=== PATIENT | male | born 1985 | race Caucasian/White ===

== ENCOUNTER 2016-11-14 02:28 | Emergency (ER) | payer SELFPAY ==
--- NOTE | ~2016-11-14 | ER ---
PATIENT'S NAME: MARSHA FUNG [facility] AGE: 30 Y [address] ROOM: [place] [address] LOCATION: [facility] ADMIT DATE: 11/14/2016 ER/Outpatient Report DISCHARGE DATE: 11/14/2016 FAMILY PHYSICIAN: Jin Douglas MD ATTENDING PHYSICIAN: Selena Lema HISTORY OF PRESENT ILLNESS: This is a 30-year-old male who presents today with a chief complaint of severe lower abdominal pain woke him up from sleep with sudden onset. He does report some nausea from the pain, but no vomiting, it started 1-1/2 hours ago. Denies any urinary frequency or burning with urination or hematuria. No fever or chills. No constipation or diarrhea. He says it is severe cramping in his lower abdomen and it is in his back as well. It does not radiate anywhere else. It does not radiate down his legs. No other complaints at this time. PAST MEDICAL HISTORY: None. PAST SURGICAL HISTORY: None. SOCIAL HISTORY: He smokes 1-1/2 pack per day and has done so for years. Occasional alcohol. Denies drug use. Sexually active with one partner. Denies any penile discharge. No history of STDs. MEDICATIONS: None. ALLERGIES: NONE. REVIEW OF SYSTEMS: Reviewed by me and negative with the exception of those discussed in HPI. PHYSICAL EXAMINATION: VITAL SIGNS: The patient is 6 feet tall, 108.1 kilos, blood pressure 191/101, heart rate 72, respiratory rate 19, temp is 94.9, and satting 96% on room air. GENERAL: The patient looks very uncomfortable, unable to sit still in stretcher, has his knees up to his chest or the kidney, not actively vomiting. He does not look toxic. HEART: Regular rate and rhythm. LUNGS: Lung sounds are clear. ABDOMEN: He has some tenderness in the suprapubic area, in the right lower quadrant, and the left lower quadrant. No CVA tenderness bilaterally. No PATIENT'S NAME: MARSHA FUNG [facility] AGE: 30 Y [address] ROOM: [place] [address] LOCATION: [facility] ADMIT DATE: 11/14/2016 ER/Outpatient Report DISCHARGE DATE: 11/14/2016 FAMILY PHYSICIAN: Jin Douglas MD ATTENDING PHYSICIAN: Selena Lema right upper quadrant tenderness. Negative Jackson's. No epigastric tenderness. No left upper quadrant tenderness. SKIN: Warm, dry, and intact. EMERGENCY ROOM COURSE: An IV was established and the patient was given Toradol with immediate improvement of the pain and also gave him some morphine as well. We checked a CBC, CMP, a procal, a lactic, and a urine. The CBC shows a white count of 17.2, H and H of 17.5/49.7, and platelets are 233. He has no bandemia or left shift. CMP shows sodium 140, potassium 3.7, chloride 108, CO2 22, anion gap 13.7, glucose 113, calcium 9, BUN 17, creatinine 1.2, total bili is 0.5, alk phos is 93, AST 14, ALT 18, and GFR greater than 60. Procalcitonin is less than 0.05. Urine shows negative leukocytes, negative nitrites, blood is 250, wbc is 0 to 2, rbc is 20 to 50 with rare bacteria, and 0 to [address] of abdomen and pelvis was done showing a 3-mm obstructing right proximal ureteral stone with moderate hydronephrosis; otherwise, normal CT abdomen and pelvis. I discussed this with the patient. He feels improved with the morphine and Toradol. We also gave him Flomax here. I told to him to stay well-hydrated. It is 3-mm stone that should pass on its own; however, it is proximally located and it might take sometime. I gave him a script for some Percocet, Toradol, and Flomax and told him to stay hydrated and follow up with his doctor as needed. He understands reasons to comeback to the ER sooner. IMPRESSION: Kidney stone. MD JANIS JOHANSEN/jesus /[id number] d: 11/14/16 0556 t: 11/14/161955, OUTPATIENT REPORT
[2016-11-14 02:58] LABS: BASOPHIL # 0.2 K/uL (0.0-0.2); EOSINOPHIL # 0.4 K/uL (0.0-0.5); EOSINOPHIL % 2.5 %; HEMATOCRIT 49.7 % (37.0-53.0); HEMOGLOBIN 17.5 g/dL (12.0-17.0); IMMATURE GRANULOCYTE # 0.1 K/uL (0.0-0.3); IMMATURE GRANULOCYTE % 0.3 %; LYMPHOCYTE # 3.9 K/uL (0.8-4.0); LYMPHOCYTE % 22.4 %; MCH 31.5 pg (27.0-34.0); MCHC 35.2 gm/dL (32.0-36.5); MCV 89.4 fl (83.0-98.0); MONOCYTE # 1.2 K/uL (0.0-1.0); MONOCYTE % 6.9 %; NEUTROPHIL # (ANC) 11.5 K/uL (1.4-9.0); NEUTROPHIL % 66.9 %; NRBC % 0 /100WBC (0-0.00); PLATELET COUNT 233 K/uL (150-450); RBC 5.56 M/uL (4.00-6.00); RDW-CV 12.3 % (11.9-14.6)
[2016-11-14 02:59] LABS: WBC 17.2 K/uL (4.0-11.0)
[2016-11-14 03:18] LABS: ALK PHOS 93 IU/L (33-138); ALT 18 IU/L (12-78); ANION GAP 13.7 (10.0-19.0); AST 14 IU/L (10-40); BLOOD UREA NITROGEN 17 mg/dL (6-24); CHLORIDE 108 mMol/L (96-110); CO2 22 mMol/L (22-32); CREATININE 1.2 mg/dL (0.6-1.3); ESTIMATED GFR (MDRD EQUATION) > 60; POTASSIUM 3.7 mMol/L (3.7-5.1); SODIUM 140 mMol/L (135-145); TOTAL BILIRUBIN 0.5 mg/dL (0.0-1.5); TOTAL PROTEIN 8.1 g/dL (6.0-8.4)
[2016-11-14 03:54] LABS: BILIRUBIN URINE NEGATIVE (NEGATIVE); BLOOD URINE 250 /UL (NEGATIVE); COLOR URINE YELLOW (YELLOW); GLUCOSE URINE NEGATIVE (NEGATIVE); KETONE URINE 50 mg/dL (NEGATIVE); LEUKOCYTES URINE NEGATIVE /UL (NEGATIVE); NITRITE URINE NEGATIVE (NEGATIVE); PROTEIN URINE 30 mg/dL (NEGATIVE); TURBIDITY URINE 1+ (CLEAR); UROBILINOGEN URINE NORMAL (NORMAL)
[2016-11-14 04:00] LABS: EPITHELIAL URINE 0-2 #/HPF (NEGATIVE); RBC URINE 20-50 #/HPF (NEGATIVE); WBC URINE 0-2 #/HPF (NEGATIVE)
[2016-11-14 04:01] LABS: AMORPHOUS URINE 1+ (NEGATIVE); BACTERIA URINE RARE (NEGATIVE); YEAST URINE MANY (NEGATIVE)
== END 2016-11-14 04:30 | disposition disaster alternative care site (69) ==
LOC: GMED 02:28
PROVIDERS: Emergency Medicine
DX: N13.2 Hydronephrosis with renal and ureteral calculous obstruction (principal); F17.210 Nicotine dependence, cigarettes, uncomplicated
CPT/HCPCS: J1885; J2270; J2405; Q9967